=== PATIENT | male | born 1990 | race African-American/Black ===

== ENCOUNTER 2017-05-23 13:14 | Emergency (ER) | payer SELFPAY ==
[2017-05-23 13:15] VITALS: BP 130/84; PULSE 86; RESP 14; TEMP 97.9; O2SAT 99
[2017-05-23] MEDS ORDERED: LIDOCAINE HCL 1% 50 ML VIAL INFIL ONE (14:15)
[2017-05-23] MEDS ORDERED: TETANUS/DIPHTHERIA TOXOID ADULT 0.5 ML VIAL IM ONE (14:15)
[2017-05-23] MEDS ORDERED: CLINDAMYCIN PHOS 900 MG/6 ML VIAL IM ONE (14:15)
[2017-05-23] MEDS ORDERED: ONDANSETRON HCL 4 MG/2 ML VIAL IV PUSH ONE (14:15)
[2017-05-23] MEDS ORDERED: MORPHINE SULFATE 4 MG/ML INJ IV PUSH ONE (14:15)
--- NOTE | 2017-05-23 14:17 | PD ---
HPI . Skin lesions Chief Complaint: Skin Problem Time Seen by Provider: 13:44 Travel History International Travel<30 days: No Contact w/Intl Traveler<30days: No Traveled to known affect area: No History of Present Illness HPI Patient presents with 2 skin lesions. He states that they both started 5 days ago. He has one on his left elbow and one on his abdominal wall. He states that the one on the left elbow is much worse than the one on the abdominal wall. He reports that he has drained them himself at home. He states that the one on the left elbow has been draining copious pus. He denies any associated fever. He does report some pain and rates the pain 6/10. PFSH Social History Tobacco Use: No Allergies-Medications (Allergen,Severity, Reaction): Coded Allergies: No Known Allergies (Verified Allergy, Unknown, 05/23/17) Reported Meds & Prescriptions Reported Meds & Active Scripts Active Bactrim DS (Sulfamethoxazole-Trimethoprim) 800-160 Mg Tab 1 Tab PO BID Review of Systems Except as stated in HPI: all other systems reviewed are Neg General / Constitutional: No: Fever, Chills Skin: Positive Change in Pigmentation Physical Exam Narrative GENERAL: Awake and alert and in no acute distress. SKIN: Warm and dry. He has an abscess on the left elbow which is draining purulent material. He has significant surrounding erythema, warmth and swelling. It is tender. He has a smaller abscess on his abdominal wall. HEAD: Normocephalic/atraumatic. EYES: Pupils are equal. Extraocular movements are intact. NECK: Normal range of motion. CARDIOVASCULAR: Regular rate and rhythm. RESPIRATORY: Nonlabored respirations. MUSCULOSKELETAL: Atraumatic. NEUROLOGICAL: Nonfocal. PSYCHIATRIC: Appropriate mood and affect. Data Data Last Documented VS Vital Signs Date Time Temp Pulse Resp B/P (MAP) Pulse Ox O2 Delivery O2 Flow Rate FiO2 05/23/17 13:15 97.9 86 14 130/84 (99) 99 Orders Orders Basic Metabolic Panel (Bmp) (05/23/17 14:11) Complete Blood Count With Diff (05/23/17 14:11) Blood Culture (05/23/17 14:11) Wound Culture And Gram Stain (05/23/17 14:11) Iv Access Insert/Monitor (05/23/17 14:11) Sodium Chloride 0.9% Flush (Ns Flush) (05/23/17 14:15) Tetanus/Diphtheria Tox Adult (Tetanus/Di (05/23/17 14:15) Lidocaine 1% Inj (50 Ml) (Xylocaine 1% I (05/23/17 14:15) Morphine Inj (Morphine Inj) (05/23/17 14:15) Ondansetron Inj (Zofran Inj) (05/23/17 14:15) Clindamycin 900 Mg Premix (Cleocin 900 M (05/23/17 15:00) Labs Laboratory Tests Test 05/23/17 14:25 White Blood Count 15.9 TH/MM3 Red Blood Count 4.63 MIL/MM3 Hemoglobin 14.3 GM/DL Hematocrit 42.6 % Mean Corpuscular Volume 92.2 FL Mean Corpuscular Hemoglobin 31.0 PG Mean Corpuscular Hemoglobin Concent 33.6 % Red Cell Distribution Width 12.5 % Platelet Count 231 TH/MM3 Mean Platelet Volume 9.4 FL Neutrophils (%) (Auto) 78.1 % Lymphocytes (%) (Auto) 12.7 % Monocytes (%) (Auto) 7.3 % Eosinophils (%) (Auto) 1.7 % Basophils (%) (Auto) 0.2 % Neutrophils # (Auto) 12.4 TH/MM3 Lymphocytes # (Auto) 2.0 TH/MM3 Monocytes # (Auto) 1.2 TH/MM3 Eosinophils # (Auto) 0.3 TH/MM3 Basophils # (Auto) 0.0 TH/MM3 CBC Comment DIFF FINAL Differential Comment Blood Urea Nitrogen 10 MG/DL Creatinine 1.07 MG/DL Random Glucose 100 MG/DL Calcium Level 8.8 MG/DL Sodium Level 136 MEQ/L Potassium Level 4.0 MEQ/L Chloride Level 104 MEQ/L Carbon Dioxide Level 28.1 MEQ/L Anion Gap 4 MEQ/L Estimat Glomerular Filtration Rate 100 ML/MIN [facility] Medical Decision Making Medical Screen Exam Complete: Yes Emergency Medical Condition: Yes Differential Diagnosis My differential diagnosis includes but is not limited to localized wound infection, cellulitis, abscess Narrative Course This patient presents with abscesses on his left elbow and his abdominal wall. They will both be drained. He'll be given a dose of IV clindamycin. Blood and wound cultures will be obtained. CBC & BMP Diagram 05/23/17 14:25 Calcium Level 8.8 Procedures Procedure Narrative INCISION AND DRAINAGE OF ABSCESS, left elbow: The area was prepped and was sterilely draped. A subcutaneous wheal of 1% Xylocaine with a total number 6 mL was used to anesthetize the area properly. A number 11 scalpel was used to make a 1-cm incision across the area of the abscess. The abscess was drained, complex loculations were broken down, and irrigated with normal saline. Quarter inch iodoform packing was placed in the wound. Sterile dressing applied. Patient advised to have packing removed in two days. INCISION AND DRAINAGE OF ABSCESS, abdominal wall: The area was prepped and was sterilely draped. A subcutaneous wheal of 1 % Xylocaine with a total number 2 mL was used to anesthetize the area properly. A number 11 scalpel was used to make a 0.5 -cm incision across the area of the abscess. The abscess was drained , complex loculations were broken down, and irrigated with normal saline. Quarter inch iodoform packing was placed in the wound. Sterile dressing applied. Patient advised to have packing removed in two days. Diagnosis Primary Impression: Abscess of elbow Additional Impressions: Abscess of abdominal wall Cellulitis of left elbow Patient Instructions: Abscess (ED), Abscess Incision and Drainage (DC), General Instructions, Narcotic given in the ED Additional Instructions: Return in 2 days for wound check Med/Other Pt SpecificInfo: Prescription(s) given Scripts Sulfamethoxazole-Trimethoprim (Bactrim DS) 800-160 Mg Tab 1 TAB PO BID for Infection, #20 TAB 0 Refills Prov: Cornelia Todd MD 05/23/17 Disposition: 01 DISCHARGE HOME Condition: Stable Cornelia Todd MD May 23, 2017 14:17
[2017-05-23 14:53] LABS: AUTOMATED NEUTROPHIL # 12.4 TH/MM3 (1.8-7.7); BASOPHIL % 0.2 % (0.0-2.0); EOSINOPHIL # 0.3 TH/MM3 (0-0.4); EOSINOPHIL % 1.7 % (0.0-4.0); HEMATOCRIT 42.6 % (39.0-51.0); HEMO FLAGS DIFF FINAL; LYMPH % 12.7 % (9.0-44.0); MEAN CELL VOLUME 92.2 FL (80.0-100.0); MEAN CORPUSCULAR HGB CONC 33.6 % (32.0-36.0); MONO % 7.3 % (0.0-8.0); NEUT % 78.1 % (16.0-70.0); PLATELET COUNT 231 TH/MM3 (150-450); RED BLOOD COUNT 4.63 MIL/MM3 (4.50-5.90); RED CELL DISTRIBUTION WIDTH 12.5 % (11.6-17.2); WHITE BLOOD COUNT 15.9 TH/MM3 (4.0-11.0)
[2017-05-23] MEDS: SODIUM CHLORIDE 0.9% FLUSH 10 ML FLUSH IVF PRN ×2 (14:53→16:02)
[2017-05-23] MEDS ORDERED: BACT800T5 PO (14:59)
[2017-05-23] MEDS ORDERED: CLINDAMYCIN INJ 900 MG in SODIUM CHLORIDE 0.9% INJ 100 ML IV ONE (15:00)
[2017-05-23] MEDS ORDERED: CLINDAMYCIN 900 MG/NS PREMIX 50 ML IV ONE (15:00)
[2017-05-23 15:04] LABS: BICARBONATE 28.1 MEQ/L (21.0-32.0)
[2017-05-23 16:00] VITALS: RESP 20
== END 2017-05-23 17:36 | disposition home or self-care (01) ==
LOC: NEPD 13:14
DX: L02.414 Cutaneous abscess of left upper limb (principal); L02.211 Cutaneous abscess of abdominal wall; L03.114 Cellulitis of left upper limb; A49.01 Methicillin susceptible Staphylococcus aureus infection, unspecified site
CPT/HCPCS: 10061; 80048; 85025; 86403; 87040; 87070; 87186; 90471; 90714; 96365; 96375; 99284; J2270; J2405

== ENCOUNTER 2017-05-25 08:06 | Emergency (ER) | payer SELFPAY ==
[~2017-05-25] VITALS: Ht 177.8 cm; Wt 73.0 kg
[~2017-05-25 08:06] MED LIST: BACT800T5 PO
[2017-05-25 08:08] VITALS: BP 144/67; PULSE 72; RESP 14; TEMP 97.6; O2SAT 99
--- NOTE | 2017-05-25 09:17 | PD ---
HPI . Elbow and abdomen abscess Chief Complaint: Wound/Suture/Staple Re-Check Time Seen by Provider: 08:36 Travel History International Travel<30 days: No Contact w/Intl Traveler<30days: No Traveled to known affect area: No History of Present Illness HPI 26-year-old male patient presents to the emergency department for an abscess recheck. Patient was here 2 days ago and had an I&D performed to an abscess on his left elbow. Small wound to his upper abdomen that is clean and dry. Patient states an I&D was performed to the abdominal wound 2 days ago as well. However they did not pack abdominal abscess. She denies any fever, chills, malaise, chest pain, shortness breath. Patient denies any IV drug use. Patient is on Bactrim and has been taking it as prescribed. PFSH Past Medical History Medical History: Denies Significant Hx Tetanus Vaccination: < 5 Years Influenza Vaccination: No Past Surgical History Surgical History: No Previous Surgery Social History Alcohol Use: No Tobacco Use: No Substance Use: No Allergies-Medications (Allergen,Severity, Reaction): Coded Allergies: No Known Allergies (Verified Allergy, Unknown, 05/25/17) Reported Meds & Prescriptions Reported Meds & Active Scripts Active Bactrim DS (Sulfamethoxazole-Trimethoprim) 800-160 Mg Tab 1 Tab PO BID Review of Systems Except as stated in HPI: all other systems reviewed are Neg Physical Exam Narrative GENERAL: Well-nourished, well-developed 26-year-old male patient in no acute distress. Nontoxic appearing. SKIN: Focused skin assessment warm/dry. 2 cm diameter purulent draining abscess on left elbow with surrounding erythema. 0.5cm small clean and dry wound on upper abdomen. HEAD: Normocephalic. Atraumatic. EYES: No scleral icterus. No injection or drainage. NECK: Supple, trachea midline. No JVD or lymphadenopathy. CARDIOVASCULAR: Regular rate and rhythm without murmurs, gallops, or rubs. RESPIRATORY: Breath sounds equal bilaterally. No accessory muscle use. GASTROINTESTINAL: Abdomen soft, non-tender, nondistended. MUSCULOSKELETAL: No cyanosis, or edema. Data Data Last Documented VS Vital Signs Date Time Temp Pulse Resp B/P (MAP) Pulse Ox O2 Delivery O2 Flow Rate FiO2 05/25/17 09:32 05/25/17 08:08 97.6 72 14 99 Orders Orders Ed Discharge Order (05/25/17 09:18) MDM Medical Decision Making Medical Screen Exam Complete: Yes Emergency Medical Condition: Yes Differential Diagnosis Differential diagnoses include but are not limited to cellulitis, abscess, wound Narrative Course 26-year-old male patient presents emergency department for wound recheck after having an I&D 2 days ago to the left elbow abscess. Packing was removed from the left elbow abscess and wound care was performed to the wound on his upper abdomen. Purulent drainage noted to the left elbow abscess. Left elbow abscess was repacked. Patient instructed to perform good wound care, continue to take antibiotics as prescribed and return to the emergency department in 2 days for another wound recheck. Diagnosis Primary Impression: Abscess Referrals: Primary Care Physician Patient Instructions: Acute Wounds (ED), General Instructions Additional Instructions: Please return to emergency department if your symptoms return or worsen. Follow up with your primary care provider. Continue to take Bactrim as prescribed. Alternate Ibuprofen or Tylenol as needed for pain or fevers. Return to in 2 days to get packing removed and for a wound recheck. Disposition: 01 DISCHARGE HOME Condition: Stable [place] Cande THIBODEAUX May 25, 2017 09:17
== END 2017-05-25 09:33 | disposition home or self-care (01) ==
LOC: NEPD 08:06
DX: L02.211 Cutaneous abscess of abdominal wall (principal); L02.414 Cutaneous abscess of left upper limb
CPT/HCPCS: 99282

== ENCOUNTER 2017-05-27 07:04 | Emergency (ER) | payer SELFPAY ==
[~2017-05-27] VITALS: Ht 177.8 cm; Wt 75.0 kg
[2017-05-27 07:06] VITALS: BP 117/67; PULSE 60; RESP 16; TEMP 97.8; O2SAT 98
--- NOTE | 2017-05-27 07:39 | PD ---
HPI Chief Complaint: Wound/Suture/Staple Re-Check Time Seen by Provider: 07:20 Travel History International Travel<30 days: No Contact w/Intl Traveler<30days: No Traveled to known affect area: No History of Present Illness HPI 26-year-old male presents to the emergency department for a follow-up of his abscesses. Patient states that he had an incision and drainage around Thanksgiving and has come back for wound care and monitoring. Patient denies fever or chills. Patient states that he is not having any pain. States that his wound on the abdomen feels "pretty good". Patient is on day 4 of a ten-day course of Bactrim. States compliance with treatment at this time. PFSH Past Medical History Medical History: Denies Significant Hx Past Surgical History Surgical History: No Previous Surgery Social History Alcohol Use: No Tobacco Use: No Substance Use: No Allergies-Medications (Allergen,Severity, Reaction): Coded Allergies: No Known Allergies (Verified Allergy, Unknown, 05/27/17) Reported Meds & Prescriptions Reported Meds & Active Scripts Active Bactrim DS (Sulfamethoxazole-Trimethoprim) 800-160 Mg Tab 1 Tab PO BID Review of Systems Except as stated in HPI: all other systems reviewed are Neg Physical Exam Narrative GENERAL: Well-nourished, well-developed patient. SKIN: Focused skin assessment warm/dry. Upper mid abdomen- 3 mm healing incision, mildly fluctuant center, nontender, nonerythematous or edematous. Left arm- granulating tissue, friable without exudate, erythema, or edema. No fluctuance surrounding the area. Area approximately 1-2 cm, irregularly shaped approximately 5 mm in depth. HEAD: Normocephalic. EYES: No scleral icterus. No injection or drainage. NECK: Supple, trachea midline. No JVD or lymphadenopathy. GASTROINTESTINAL: Abdomen soft, non-tender, nondistended. MUSCULOSKELETAL: No cyanosis, or edema. BACK: Nontender without obvious deformity. No CVA tenderness. Data Data Last Documented VS Vital Signs Date Time Temp Pulse Resp B/P (MAP) Pulse Ox O2 Delivery O2 Flow Rate FiO2 05/27/17 07:06 97.8 60 16 117/67 (84) 98 Room Air Orders Orders Ed Discharge Order (05/27/17 07:48) MDM Medical Decision Making Medical Screen Exam Complete: Yes Emergency Medical Condition: Yes Differential Diagnosis Mid abdomen abscess versus status post I&D versus cellulitis Left elbow abscess versus status post I&D versus cellulitis Narrative Course 26-year-old male presents to the emergency department for a follow-up of his abscesses. Patient states that he had an incision and drainage around Thanksgiving and has come back for wound care and monitoring. Patient denies fever or chills. Patient states that he is not having any pain. States that his wound on the abdomen feels "pretty good". Patient has taken all of his antibiotics. States compliance with treatment at this time. Vital signs stable. Physical exam findings consistent with status post I&D without evidence of infection or spread. Left elbow- tissue granulation presents without exudate or evidence of infection. Mid abdominal area- area of fluctuance without erythema or edema. Advised patient to begin washing the mid abdominal wound and use warm compresses to prevent abscess formation or extension. Advised patient to follow up with primary care within 2-3 days. Return to the emergency department in 2-3 days for wound check. Continue antibiotics as prescribed. Consider repeating incision and drainage for abdominal wound if no improvement. Patient understands all instructions and will comply. Diagnosis Primary Impression: Wound check, abscess Referrals: [facility] Additional Instructions: Follow-up with your primary care physician within 2-3 days. If he did not have a primary care physician return to the emergency department for wound check in 2-3 days. If you develop increased signs of infection or increased size of abscess return to the emergency department. Begin using warm compresses on the abdominal wound and light massages. Always take medication as prescribed. Disposition: 01 DISCHARGE HOME Condition: Stable Sandrita García May 27, 2017 07:39
== END 2017-05-27 08:13 | disposition home or self-care (01) ==
LOC: NEPD 07:04
DX: L02.414 Cutaneous abscess of left upper limb (principal)
CPT/HCPCS: 99281

== ENCOUNTER 2017-05-30 01:28 | Emergency (ER) | payer SELFPAY ==
[2017-05-30 01:31] VITALS: BP 124/70; PULSE 68; RESP 16; TEMP 98; O2SAT 100
--- NOTE | 2017-05-30 01:53 | PD ---
HPI Chief Complaint: Wound/Suture/Staple Re-Check Time Seen by Provider: 01:40 Travel History International Travel<30 days: No Contact w/Intl Traveler<30days: No Traveled to known affect area: No History of Present Illness HPI 26-year-old black male presents to emergency department for a 2 day wound check. He had an abscess on his left elbow incised and drained and he also had an abscess on his chest. He has not removed his dressings from the initial procedure. He states that pain is much improved. He is taking his antibiotics. No fever chills. PFSH Past Medical History Narrative Medical Skin infections ?: Not Past Surgical History Surgical History: No Previous Surgery Social History Alcohol Use: No Tobacco Use: No Substance Use: No Allergies-Medications (Allergen,Severity, Reaction): Coded Allergies: No Known Allergies (Verified Allergy, Unknown, 05/30/17) Reported Meds & Prescriptions Reported Meds & Active Scripts Active Bactrim DS (Sulfamethoxazole-Trimethoprim) 800-160 Mg Tab 1 Tab PO BID Review of Systems General / Constitutional: No: Fever Eyes: No: Visual changes HENT: No: Headaches Cardiovascular: No: Chest Pain or Discomfort Respiratory: No: Shortness of Breath Gastrointestinal: No: Abdominal Pain Genitourinary: No: Dysuria Musculoskeletal: No: Pain Skin: No Rash Neurologic: No: Weakness Psychiatric: No: Depression Endocrine: No: Polydipsia Hematologic/Lymphatic: No: Easy Bruising Physical Exam Narrative GENERAL: This is a well-nourished, well-developed patient, in no apparent distress. SKIN: Patient's dressings are removed. Packing removed from his left elbow. The wound is healing great. The bases pink and healthy. No surrounding erythema. No purulent drainage. The lesion on his chest is also healing well. No fluctuance or pointing. Ecchymoses or lesions. Warm and dry. HEAD: Atraumatic. Normocephalic. EYES: PERRL, EOMI, no discharge or injection. No scleral icterus. EARS: Clear NOSE: Nasal turbinates appear normal. THROAT: Mucosa pink and moist. Airway patent. NECK: Trachea midline. supple, moves head freely. LUNGS: Clear to auscultation. CV: Regular in rhythm. ABDOMEN: Soft nontender. EXT: No clubbing cyanosis or edema. Data Data Last Documented VS Vital Signs Date Time Temp Pulse Resp B/P (MAP) Pulse Ox O2 Delivery O2 Flow Rate FiO2 05/30/17 01:31 98.0 68 16 124/70 (88) 100 Room Air Orders Orders Ed Discharge Order (05/30/17 01:48) MDM Medical Decision Making Medical Screen Exam Complete: Yes Emergency Medical Condition: Yes Medical Record Reviewed: Yes Differential Diagnosis MDM: High Differential diagnoses: Abscess, folliculitis, cellulitis, lymphangitis, abrasion, contact dermatitis Narrative Course Patient's abscess are healing well. Dressings are reapplied. Diagnosis Primary Impression: healing abscesses Additional Impression: Wound check, abscess Patient Instructions: General Instructions Additional Instructions: Rest. Elevation. keep clean and dry. Warm compresses Daily wound care with soap, water and Neosporin. Three Advil every 6 hours. Medications to complete. Follow-up with a primary care doctor in one week. Return to the ER for any problems. Med/Other Pt SpecificInfo: Wound Care Disposition: DISCHARGE HOME Condition: Stable Williams Lee May 30, 2017 01:53
[2017-05-30 02:08] VITALS: BP 129/73; TEMP 98.4
== END 2017-05-30 02:15 | disposition home or self-care (01) ==
LOC: NEPD 01:28
DX: Z51.89 Encounter for other specified aftercare (principal); L02.414 Cutaneous abscess of left upper limb
CPT/HCPCS: 99282

== ENCOUNTER 2017-08-17 07:10 | Emergency (ER) | payer OTHER ==
[~2017-08-17] VITALS: Ht 177.8 cm; Wt 75.0 kg
[2017-08-17 07:12] VITALS: BP 125/70; PULSE 71; RESP 14; TEMP 97.7; O2SAT 100
[2017-08-17] MEDS ORDERED: LIDOCAINE 1%/EPINEPHrine 1:100,000 SOLN 20 ML VIAL INFIL ONE (07:30)
--- NOTE | 2017-08-17 07:36 | PD ---
HPI Chief Complaint: Lump, Cyst, Hernia Time Seen by Provider: 07:20 Travel History International Travel<30 days: No Contact w/Intl Traveler<30days: No Traveled to known affect area: No History of Present Illness HPI 27-year-old male arrives with pain in the right axilla along with redness and swelling. He's had multiple prior abscesses and please send things happening today. No fever. Pain is constant worse palpation. PFSH Social History Alcohol Use: No Tobacco Use: No Substance Use: No Allergies-Medications (Allergen,Severity, Reaction): Coded Allergies: No Known Allergies (Verified Allergy, Unknown, 05/30/17) Reported Meds & Prescriptions Reported Meds & Active Scripts Active Bactrim DS (Sulfamethoxazole-Trimethoprim) 800-160 Mg Tab 1 Tab PO BID Review of Systems General / Constitutional: No: Fever Cardiovascular: No: Chest Pain or Discomfort Respiratory: No: Shortness of Breath Physical Exam Narrative GENERAL: 27 yo M, WNWD, mild distress 2/2 pain Vital Signs Date Time Temp Pulse Resp B/P (MAP) Pulse Ox O2 Delivery O2 Flow Rate FiO2 08/17/17 07:12 97.7 71 14 125/70 (88) 100 SKIN: Warm and dry. Approx 3cm abscess in right axilla with focus of fluctuance. No lymphangitis or extension of erythema. HEAD: Normocephalic. CARDIOVASCULAR: Regular rate and rhythm without murmurs, gallops, or rubs. RESPIRATORY: Breath sounds equal bilaterally. No accessory muscle use. GASTROINTESTINAL: Abdomen soft, non-tender, nondistended. MUSCULOSKELETAL: No cyanosis, or edema. Data Data Last Documented VS Vital Signs Date Time Temp Pulse Resp B/P (MAP) Pulse Ox O2 Delivery O2 Flow Rate FiO2 08/17/17 07:12 97.7 71 14 125/70 (88) 100 Orders Orders Lidocai-Epi 1%-1:100,000 Inj (Xylocaine- (08/17/17 07:30) MDM Medical Decision Making Medical Screen Exam Complete: Yes Emergency Medical Condition: Yes Medical Record Reviewed: Yes Differential Diagnosis Cellulitis, abscess, lymphangitis Narrative Course Abscess incised and drained by SOPHIE Bobby Hygienic precautions discussed. Diagnosis Primary Impression: Wound check, abscess Referrals: Primary Care Physician Med/Other Pt SpecificInfo: No Change to Meds Disposition: 01 DISCHARGE HOME Condition: Stable Bayron Dumont MD Aug 17, 2017 07:36
--- NOTE | 2017-08-17 07:42 | PD ---
Physical Exam Date Seen by Provider: Aug 17, 2017 Time Seen by Provider: 07:40 Narrative 27-year-old Afro-[place] male presents with axilla abscess, seen by Dr. Dumont, and I did the I&D procedure. Please see my procedure note. Data Data Last Documented VS Vital Signs Date Time Temp Pulse Resp B/P (MAP) Pulse Ox O2 Delivery O2 Flow Rate FiO2 08/17/17 07:12 97.7 71 14 125/70 (88) 100 Orders Orders Lidocai-Epi 1%-1:100,000 Inj (Xylocaine- (08/17/17 07:30) MDM Medical Record Reviewed: Yes Supervised Visit with OFELIA: Yes Procedures Procedure Narrative After the risks and benefits were discussed the following procedure was performed: INCISION AND DRAINAGE OF ABSCESS: The area was prepped and was sterilely draped. A subcutaneous wheal of 1 % Xylocaine with epi with a total number 2.5 mL was used to anesthetize the area. The area was properly anesthetized. A number 11 scalpel was used to make a 0.5-cm incision across the area of the abscess. Cultures were obtained. The abscess was drained an irrigated with normal saline. Packing was not felt warranted based on my exam. Sterile dressing applied. Patient advised to have wound checked in two days if not improving. Diagnosis Primary Impression: Wound check, abscess Referrals: Primary Care Physician Patient Instructions: Abscess Incision and Drainage (DC), General Instructions Disposition: 01 DISCHARGE HOME Condition: Stable Malvin Bobby Aug 17, 2017 07:42
== END 2017-08-17 08:05 | disposition home or self-care (01) ==
LOC: NEPC 07:10
DX: L02.411 Cutaneous abscess of right axilla (principal)
CPT/HCPCS: 10060; 99282

== ENCOUNTER 2017-08-25 16:14 | Emergency (ER) | payer SELFPAY ==
[2017-08-25 16:29] VITALS: BP 136/60; PULSE 81; RESP 12; TEMP 98.9; O2SAT 98
[2017-08-25] MEDS ORDERED: BACT800T5 PO (17:37)
--- NOTE | 2017-08-25 17:40 | PD ---
HPI Chief Complaint: Skin Problem Time Seen by Provider: 17:36 Travel History International Travel<30 days: No Contact w/Intl Traveler<30days: No Traveled to known affect area: No History of Present Illness HPI 27-year-old male presents for evaluation of right axillary erythema. He recently was seen here for evaluation of an axillary abscess and incision and drainage is performed. He was not put on any antibiotics and he reports slightly worsening redness and tenderness. Symptoms are mild, aggravated by palpation. Denies any drainage, fevers, chills. No wound culture was performed. No other complaints at this time. [facility] Social History Alcohol Use: No Tobacco Use: No Substance Use: No Allergies-Medications (Allergen,Severity, Reaction): Coded Allergies: No Known Allergies (Verified Allergy, Unknown, 05/30/17) Reported Meds & Prescriptions Reported Meds & Active Scripts Active Bactrim DS (Sulfamethoxazole-Trimethoprim) 800-160 Mg Tab 1 Tab PO BID Bactrim DS (Sulfamethoxazole-Trimethoprim) 800-160 Mg Tab 1 Tab PO BID Review of Systems General / Constitutional: No: Fever, Chills Skin: Positive Other (skin redness, tenderness) Physical Exam Narrative GENERAL: Well-nourished male in no acute distress SKIN: Warm and dry. 1 cm area of erythema and induration to the right axilla. No fluctuance or drainage. CARDIOVASCULAR: Regular rate and rhythm. No murmur appreciated. RESPIRATORY: No accessory muscle use. Clear to auscultation. Breath sounds equal bilaterally. Data Data Last Documented VS Vital Signs Date Time Temp Pulse Resp B/P (MAP) Pulse Ox O2 Delivery O2 Flow Rate FiO2 08/25/17 16:29 98.9 81 12 136/60 (85) 98 MDM Medical Decision Making Medical Screen Exam Complete: Yes Emergency Medical Condition: Yes Medical Record Reviewed: Yes Differential Diagnosis Cellulitis, abscess, hidradenitis Narrative Course Patient has a small area of cellulitis of the right axilla with no fluctuant abscess or drainage. Previous wound cultures have grown out Staphylococcus aureus. The patient will be discharged with Bactrim. Diagnosis Primary Impression: Cellulitis Additional Instructions: Medication as prescribed. Warm compresses several times a day 15 minutes at a time. Return for any acutely new or worsening symptoms. Med/Other Pt SpecificInfo: Prescription(s) given Scripts Sulfamethoxazole-Trimethoprim (Bactrim DS) 800-160 Mg Tab 1 TAB PO BID for Infection, #14 TAB 0 Refills Prov: Chidi Araujo MD 08/25/17 Disposition: 01 DISCHARGE HOME Condition: Stable Luis Linda Aug 25, 2017 17:40
== END 2017-08-25 17:56 | disposition home or self-care (01) ==
LOC: NEPK 16:14
DX: L03.111 Cellulitis of right axilla (principal); B95.61 Methicillin susceptible Staphylococcus aureus infection as the cause of diseases classified elsewhere
CPT/HCPCS: 99281

== ENCOUNTER 2017-08-31 19:26 | Emergency (ER) | payer OTHER ==
[~2017-08-31] VITALS: Ht 177.8 cm; Wt 72.0 kg
[2017-08-31 19:33] VITALS: BP 118/57; PULSE 64; RESP 18; TEMP 98.1; O2SAT 100
[2017-08-31] MEDS ORDERED: PENICILLIN G BENZATHINE 2,400,000 UNITS/4 ML SYRINGE IM ONE (20:15)
--- NOTE | 2017-08-31 21:05 | PD ---
HPI Chief Complaint: Skin Problem Time Seen by Provider: 19:44 Travel History International Travel<30 days: No Contact w/Intl Traveler<30days: No Traveled to known affect area: No History of Present Illness HPI Patient is a 27 year old male who comes in complaining painless lesions on his penis. He says he has noticed some for the past few days. He was concerned it was related to HPV, which his ex- had. He denies any pain to the area. He has not noticed any discharge. He has not noticed any other lesions anywhere else. He has not taken anything for her symptoms. Severity is mild. PFSH Past Medical History Integumentary: Yes (HPV) Tetanus Vaccination: < 5 Years Influenza Vaccination: No Past Surgical History Surgical History: No Previous Surgery Social History Alcohol Use: No Tobacco Use: No Substance Use: No Allergies-Medications (Allergen,Severity, Reaction): Coded Allergies: No Known Allergies (Verified Allergy, Unknown, 08/31/17) Reported Meds & Prescriptions Reported Meds & Active Scripts Active No Active Prescriptions or Reported Medications Review of Systems General / Constitutional: No: Fever, Chills Eyes: No: Blurred Vision HENT: No: Headaches, Lightheadedness Cardiovascular: No: Chest Pain or Discomfort Respiratory: No: Shortness of Breath Gastrointestinal: No: Nausea, Vomiting Skin: Positive Lesions Neurologic: No: Weakness, Dizziness Physical Exam Narrative GENERAL: Awake and alert, in no acute distress. SKIN: Focused skin assessment warm/dry. HEAD: Atraumatic. Normocephalic. EYES: Pupils equal and round. No scleral icterus. ENT: Mucous membranes pink and moist. CARDIOVASCULAR: Regular rate and rhythm. No murmur appreciated. RESPIRATORY: No accessory muscle use. Clear to auscultation. Breath sounds equal bilaterally. : Exam performed in the presence of a nurse. There is a large lesion just below the glans on the dorsal side of the penis. Several smaller lesions on the shaft. They are nontender, not vesicular. There is bilateral groin lymphadenopathy. MUSCULOSKELETAL: No obvious deformities. No clubbing. No cyanosis. No edema. NEUROLOGICAL: Awake and alert. No obvious cranial nerve deficits. Motor grossly within normal limits. Normal speech. Data Data Last Documented VS Vital Signs Date Time Temp Pulse Resp B/P (MAP) Pulse Ox O2 Delivery O2 Flow Rate FiO2 08/31/17 19:33 98.1 64 18 118/57 (77) 100 Orders Orders Rapid Plasmin Reagin Screen (08/31/17 19:59) Penicillin G Benzathine Inj (Bicillin L- (08/31/17 20:15) Labs Laboratory Tests Test 08/31/17 20:15 [facility] Medical Decision Making Medical Screen Exam Complete: Yes Emergency Medical Condition: Yes Medical Record Reviewed: Yes Differential Diagnosis Syphilis versus herpes versus genital warts Narrative Course Patient is a 27-year-old male who comes in complaining of lesions on his penis. Exam shows a large lesion to the dorsal side of the penis as well as several small flat lesions. Concern is for possible syphilis. RPR sent. Patient given first dose of penicillin. Advised to follow-up with the health department or urology. Advised to return as needed for any worsening symptoms. Diagnosis Primary Impression: STD (male) Referrals: Jaskaran Yu DO call for appointment Patient Instructions: General Instructions, Sexually Transmitted Diseases (ED) Additional Instructions: You can follow-up at the health department or with urology. If the syphilis test is positive, you will need further treatment with penicillin. Return as needed for any worsening symptoms. Scripts No Active Prescriptions or Reported Meds Disposition: 01 DISCHARGE HOME Condition: Stable [place] Siddiqui MD Aug 31, 2017 21:05
== END 2017-08-31 21:15 | disposition home or self-care (01) ==
LOC: NEPD 19:26
DX: A64 Unspecified sexually transmitted disease (principal)
CPT/HCPCS: 86592; 96372; 99283; J0561

== ENCOUNTER 2017-09-08 23:39 | Emergency (ER) | payer OTHER ==
[~2017-09-08] VITALS: Ht 177.8 cm; Wt 73.0 kg
[2017-09-08 23:59] VITALS: BP 125/60; PULSE 70; RESP 16; TEMP 98.3; O2SAT 98
--- NOTE | 2017-09-09 00:40 | RADRPT ---
EXAM DATE/TIME: 09/09/2017 00:31 [facility] COMPARISON: No previous studies available for comparison. INDICATIONS : Swelling in distal portion of 3rd digit. MEDICAL HISTORY : None. SURGICAL HISTORY : None. ENCOUNTER: Initial ACUITY: 1 day PAIN SCORE: 5/10 LOCATION: Left 3rd digit FINDINGS: Examination of the third digit of the right hand demonstrates no evidence of fracture or dislocation. No radiopaque foreign bodies are seen. The soft tissues are intact. Focal soft tissue swelling inv olving the distal third digit. CONCLUSION: Soft tissue swelling. Otherwise, no acute abnormality. Gigi Jett Jr., MD on September 09, 2017 at 0:38 Board Certified Radiologist. This report was verified electronically.
--- NOTE | 2017-09-09 04:13 | PD ---
HPI Chief Complaint: Injury Time Seen by Provider: 04:10 Travel History International Travel<30 days: No Contact w/Intl Traveler<30days: No Traveled to known affect area: No History of Present Illness HPI 27-year-old right-hand dominant black male presents emergency department with complains of pain and swelling to his right middle finger over the last 1-2 days. He denies any direct trauma. No numbness or tingling. Pain is moderate. Sharp and throbbing. No alleviating symptoms. Exacerbated by palpation PFSH Past Medical History Medical History: Denies Significant Hx Diminished Hearing: No Integumentary: Yes (HPV) Tetanus Vaccination: < 5 Years Influenza Vaccination: No Past Surgical History Surgical History: No Previous Surgery Social History Alcohol Use: No Tobacco Use: No Substance Use: No Allergies-Medications (Allergen,Severity, Reaction): Coded Allergies: No Known Allergies (Verified Allergy, Unknown, 08/31/17) Reported Meds & Prescriptions Reported Meds & Active Scripts Active No Active Prescriptions or Reported Medications Review of Systems Except as stated in HPI: all other systems reviewed are Neg Physical Exam Narrative GENERAL: This is a well-nourished, well-developed patient, in no apparent distress. SKIN: No rashes, ecchymoses or lesions. Warm and dry. HEAD: Atraumatic. Normocephalic. EYES: PERRL, EOMI, no discharge or injection. No scleral icterus. EARS: Clear NOSE: Nasal turbinates appear normal. THROAT: Mucosa pink and moist. Airway patent. NECK: Trachea midline. supple, moves head freely. LUNGS: Clear to auscultation. CV: Regular in rhythm. ABDOMEN: Soft nontender. EXT: No clubbing cyanosis or edema. Examination of the right middle finger reveals swelling to the radial nailbed with erythema, tenderness and warmth. This is consistent with a paronychia Data Data Last Documented VS Vital Signs Date Time Temp Pulse Resp B/P (MAP) Pulse Ox O2 Delivery O2 Flow Rate FiO2 09/08/17 23:59 98.3 70 16 125/60 (81) 98 Orders Orders Ice/Cold Pack (09/09/17 00:02) Finger ([id number]) (09/09/17 00:02) MDM Medical Decision Making Medical Screen Exam Complete: Yes Emergency Medical Condition: Yes Medical Record Reviewed: Yes Differential Diagnosis MDM: High Differential diagnoses: Abscess, folliculitis, cellulitis, lymphangitis, abrasion, contact dermatitis, paronychia Narrative Course Patient has a paronychia to his right middle finger. An incision and drainage has been performed. Patient was given Bactrim DS. Procedures Procedure Narrative Incision and drainage right middle finger paronychia. The skin is prepped and draped in usual sterile fashion. 1% lidocaine digital block performed. After adequate anesthesia an 11 blade scalpel was used to make a stab incision to the radial aspect of the nailbed with expression of pus. Patient tolerated procedure well without complication. Dressing applied. Diagnosis Primary Impression: Paronychia of right middle finger Patient Instructions: General Instructions Additional Instructions: Rest. Elevation. keep clean and dry. Soaks in Epsom salt twice daily. Daily wound care with soap, water and Neosporin. Three Advil every 6 hours. Septra DS.. Follow-up with a primary care doctor in one week. Return to the ER for any problems. Med/Other Pt SpecificInfo: Prescription(s) given Scripts No Active Prescriptions or Reported Meds Disposition: 01 DISCHARGE HOME Condition: Stable [place] Lee Sep 09, 2017 04:13
[2017-09-09] MEDS ORDERED: SULFAMETHOXAZOLE-TRIMETHOPRIM DS 800-160 MG TAB PO ONE (04:15)
[2017-09-09] MEDS ORDERED: BACT800T5 PO (04:16)
== END 2017-09-09 04:31 | disposition home or self-care (01) ==
LOC: NEPD 23:39
DX: L03.011 Cellulitis of right finger (principal)
CPT/HCPCS: 10060; 73140